=== PATIENT | male | born 1950 | race Caucasian/White ===

== ENCOUNTER → 2017-10-09 | Outpatient (CLI) | payer OTHER ==
[~2017-10-09] MED LIST: AMLO10TA2 PO; CALC-894 PO; CHLO4TAB32 PO; CLOP75TA14 PO; FINA5TAB41 PO; FLUO40CA49 PO; INSLAN SQ; INSULIN ASPART SQ; ISOS30TA6 PO; LOSA100T29 PO; METF500T6 PO; METO25TA6 PO; OMEP20CA10 PO; ROSU40 PO; UBID50TA3 PO
== END ==
LOC: SHCH 10:39
PROVIDERS: ATTEND Internal Medicine Cardiovascular Disease
DX: I25.10 Atherosclerotic heart disease of native coronary artery without angina pectoris (principal)
CPT/HCPCS: 93306

== ENCOUNTER → 2017-10-13 | Outpatient (CLI) | payer OTHER ==
[~2017-10-13] MED LIST changes: +REGADENOSON 0.4 MG/5 ML PF SYG IVP SCH
== END | disposition home or self-care (01) ==
LOC: SHCH 08:25
PROVIDERS: ATTEND Internal Medicine Cardiovascular Disease
DX: I25.10 Atherosclerotic heart disease of native coronary artery without angina pectoris (principal); R01.1 Cardiac murmur, unspecified
CPT/HCPCS: 78452; 93017; 96374; A9500 ×2; J2785

== ENCOUNTER → 2017-10-30 | Outpatient (CLI) | payer OTHER ==
[~2017-10-30] MED LIST changes: -REGADENOSON 0.4 MG/5 ML PF SYG IVP SCH
== END | disposition home or self-care (01) ==
LOC: SHCH 09:46
PROVIDERS: ATTEND Internal Medicine Cardiovascular Disease
DX: I65.23 Occlusion and stenosis of bilateral carotid arteries (principal); I25.10 Atherosclerotic heart disease of native coronary artery without angina pectoris; I71.4 Abdominal aortic aneurysm, without rupture
CPT/HCPCS: 93880; 93978

== ENCOUNTER → 2019-07-26 | Outpatient (CLI) | payer OTHER ==
[~2019-07-26] MED LIST changes: -AMLO10TA2 PO; +AMLO10TA7 PO; -LOSA100T29 PO; +LOSA100T58 PO; +METF-444 PO; -METF500T6 PO; +OMEP-298 PO; -OMEP20CA10 PO
== END | disposition home or self-care (01) ==
LOC: SHCH 15:03
PROVIDERS: ATTEND Internal Medicine Cardiovascular Disease
DX: I10 Essential (primary) hypertension (principal)
CPT/HCPCS: 93306

== ENCOUNTER → 2019-07-30 | Outpatient (CLI) | payer OTHER | END | disposition home or self-care (01) | LOC: SHCH 08:36 | PROVIDERS: ATTEND Internal Medicine Cardiovascular Disease | DX: I65.23 Occlusion and stenosis of bilateral carotid arteries (principal); I10 Essential (primary) hypertension | CPT/HCPCS: 93880 ==

== ENCOUNTER → 2022-06-24 | Outpatient (CLI) | payer OTHER ==
[~2022-06-24] MED LIST changes: +AMLO-258 PO; -AMLO10TA7 PO; -ISOS30TA6 PO; +ISOS30TA92 PO; -OMEP-298 PO; +OMEP20CA12 PO
== END | disposition home or self-care (01) ==
LOC: SHCH 08:58
PROVIDERS: ATTEND Internal Medicine Cardiovascular Disease
DX: I71.40 Abdominal aortic aneurysm, without rupture, unspecified (principal); Z95.828 Presence of other vascular implants and grafts
CPT/HCPCS: 93978

== ENCOUNTER → 2023-02-07 | Outpatient (CLI) | payer OTHER ==
[~2023-02-07] MED LIST changes: +CLOP-31 PO; -CLOP75TA14 PO; -LOSA100T58 PO; +LOSA100T59 PO; +REGADENOSON 0.4 MG/5 ML PF SYG IVP ONE
== END | disposition home or self-care (01) ==
LOC: SHCH 08:29
PROVIDERS: ATTEND Internal Medicine Cardiovascular Disease
DX: R00.2 Palpitations (principal); R06.02 Shortness of breath; R53.83 Other fatigue; Z95.1 Presence of aortocoronary bypass graft; I10 Essential (primary) hypertension; E11.9 Type 2 diabetes mellitus without complications; I71.40 Abdominal aortic aneurysm, without rupture, unspecified
CPT/HCPCS: 78452; 96374; 93017; J2785; A9500 ×2

== ENCOUNTER → 2023-10-03 | Outpatient (CLI) | payer OTHER ==
[~2023-10-03] MED LIST changes: -AMLO-258 PO; +CALC-1105 PO; -CALC-894 PO; -CHLO4TAB32 PO; +CILO100T3 PO; -CLOP-31 PO; +CLOP75TA32 PO; +DOXA4TAB3 PO; +DULO30CA52 PO; +EMPA25TA PO; +FISH1CAP27 PO; -FLUO40CA49 PO; +HYDR12.54 PO; -INSLAN SQ; +INSU300I SQ; -INSULIN ASPART SQ; -METF-444 PO; +METO-408 PO; -METO25TA6 PO; -OMEP20CA12 PO; +PANT40TA54 PO; +PIOG30TA70 PO; -REGADENOSON 0.4 MG/5 ML PF SYG IVP ONE; +RIVA2.5T PO; -ROSU40 PO; +ROSU40TA21 PO; -UBID50TA3 PO
== END | disposition home or self-care (01) ==
LOC: SHCH 08:53
PROVIDERS: ATTEND Internal Medicine Cardiovascular Disease
DX: I08.0 Rheumatic disorders of both mitral and aortic valves (principal); I25.10 Atherosclerotic heart disease of native coronary artery without angina pectoris
CPT/HCPCS: 93306

== ENCOUNTER 2024-12-16 07:16 | Day surgery (SDC) | payer OTHER ==
[2024-12-12 14:45] LABS: APPEARANCE,URINE CLEAR (CLEAR); BILIRUBIN,URINE NEGATIVE (NEGATIVE); COLOR,URINE LIGHT-YELLOW (YELLOW); GLUCOSE, URINE (UA) 70 mg/dL (NEGATIVE); KETONES,URINE NEGATIVE (NEGATIVE); LEUKOCYTE ESTERASE ,URINE 500 Leu/uL (NEGATIVE); NITRATE,URINE NEGATIVE (NEGATIVE); OCCULT BLOOD,URINE SMALL (NEGATIVE); PROTEIN,URINE 70 mg/dL (NEGATIVE); UROBILINOGEN,URINE 0.2 mg/dL (0.2-1.0)
--- NOTE | 2024-12-12 14:47 | EKG ---
[facility] Test Date: 2024-12-12 Test Time: 14:35:37 Pat Name: BOB PORRAS Department: [facility] Room: Gender: M [employer] Loader: [id number] : 1950 Requested By: Lb MCCLELLAN Order Number: [id number] Reading MD: Ignacio Rodriguez Measurements Intervals [place] Rate: 69 P: 0 CO: 0 QRS: -3 QRSD: 102 T: 162 QT: 421 QTc: 482 Interpretive Statements Sinus with PVC's Probable LVH with secondary repol abnrm Inferior infarct, old Compared to ECG 03/10/2023 10:47:08 Ventricular premature complex(es) now present Myocardial infarct finding now present Sinus rhythm no longer present ST (T wave) deviation no longer present Possible ischemia no longer present Prolonged QT interval no longer present Electronically Signed On 12-12-2024 14:53:09 CDT by Ignacio Rodriguez Please click the below link to view image of tracing.
[2024-12-12 15:04] LABS: ADD UA MICROSCOPIC YES
[2024-12-12 15:05] LABS: HEMATOCRIT 41.8 % (42-54); MEAN CORPUSCULAR HGB CONC 33.3 g/dL (32.0-36.0); MEAN CORPUSCULAR VOLUME 90.1 fL (79-99); PLATELET COUNT (AUTO) 284 K/uL (130-400); RED BLOOD CELL COUNT(AUTO) 4.64 MIL/uL (4.50-6.20); RED CELL DISTRIBUTION WIDTH 14.5 % (11.0-15.5); WHITE BLOOD COUNT (AUTO) 9.3 K/uL (4.8-10.8)
[2024-12-12 15:12] LABS: BACTERIA,URINE RARE /HPF (None Seen); MUCUS,URINE RARE LPF (None Seen); OTHER CASTS, URINE 1 /LPF (None Seen); SQUAMOUS EPITHELIAL CELL,UR RARE /HPF (0-2)
[2024-12-12 15:15] LABS: CREATININE 1.4 mg/dL (0.5-1.3); POTASSIUM 3.8 mmol/L (3.5-5.1)
[2024-12-12 15:26] LABS: B-TYPE NATRIURETIC PEPTIDE 1110 pg/mL (0-100)
[2024-12-12 15:28] LABS: INR 1.09 (0.85-1.15); PROTHROMBIN TIME 11.5 SEC (9.6-11.6)
[2024-12-12 15:29] LABS: PARTIAL THROMBOPLASTIN TIME 36.5 SEC (26.3-35.5)
[2024-12-12 15:30] VITALS: BP 180/87; PULSE 67; RESP 18; TEMP 97.2
[2024-12-12 16:17] LABS: BAND NEUTROPHILS % (MANUAL) 1 % (0-2); EOSINOPHILS % (MANUAL) 1 % (1-6); LYMPHOCYTES % (MANUAL) 5 % (22-44); MONOCYTES % (MANUAL) 6 % (2-9); REACTIVE LYMPHOCYTES 19 % (0-0); SEGMENTED NEUTROPHILS % 68 % (40-70); TOTAL CELLS COUNTED 100
[2024-12-12 16:19] LABS: MAN.DIFF COMMENT-IMPRESSION MANUAL DIFFERENTIAL
--- NOTE | 2024-12-12 16:23 | HMCIMG ---
CHEST 1VW HISTORY: Preop COMPARISON: 03/10/2023 FINDINGS: A frontal projection of the chest was obtained. Mild bilateral pulmonary infiltrates are seen may be related to mild pulmonary vascular congestion with possible superimposed pneumonitis. Poststernotomy changes are seen. The heart is enlarged. Degenerative changes of the thoracolumbar spine are present. All the lines and tubes are again seen in place. There are calcifications are seen. IMPRESSION: 1. Bilateral pulmonary infiltrates are seen suggestive of pulmonary vascular congestion with possible superimposed pneumonitis.
--- NOTE | 2024-12-13 12:00 | NUR ---
report reported ua/cxr/bmp/bnp to salbador granados np. received orders to repeat bnp/bmp morning of procedure and also to order lasix, but son not willing to give and has lasix at home. . . also received fluid and sodium restrictions but son not willing to follow. salbador granados weight checker notified of above. Addendum: 12/13/24 at 1242 by JENNY WATKINS RN RN Bear Kenny son is aware of risk of not following the above instructions. he reports patient agrees with his decisions too.
[~2024-12-16] VITALS: Ht 165.1 cm; Wt 95.5 kg
[2024-12-16] VITALS (9 sets, daily range): BP systolic 113–192; BP diastolic 66–89; PULSE 66–78; RESP 15–18; TEMP 97.2–97.5
[~2024-12-16 07:16] MED LIST changes: +AMLO2.5T4 PO; -CALC-1105 PO; -CILO100T3 PO; -CLOP75TA32 PO; -EMPA25TA PO; +FAMO20TA8 PO; -FISH1CAP27 PO; -HYDR12.54 PO; -ISOS30TA92 PO; +LISI5TAB21 PO; +LORA10TA7 PO; -LOSA100T59 PO; -METO-408 PO; +METO50TA18 PO; -PANT40TA54 PO; -PIOG30TA70 PO; +RANO500T6 PO; -ROSU40TA21 PO; +SEMA1PEN3 SQ; +novolog SQ
[2024-12-16] MEDS ORDERED: 0.9%NACL 1000ML 1,000 ML IV SCH (07:30)
--- NOTE | 2024-12-16 07:50 | NUR ---
DR. MCCLELLAN MADE AWARE OF WORSENING BNP, CREATININE, GFR AND HE WAS MADE AWARE THAT PT DID TAKE XARELTO LAST NIGHT. DR. MCCLELLAN STATED HE WILL COME SPEAK WITH PT BEFORE PROCEDURE
[2024-12-16 07:55] LABS: CREATININE 1.5 mg/dL (0.5-1.3); POTASSIUM 4.5 mmol/L (3.5-5.1)
--- NOTE | 2024-12-16 10:50 | NUR ---
DR. MCCLELLAN ASSESSING PT. WILL PROCEED WITH CATH.
[2024-12-16] MEDS ORDERED: SODIUM BICARB 50MEQ 50ML VIAL 50 ML ONE (10:51)
[2024-12-16] MEDS ORDERED: LIDOCAINE HCL 400MG/20ML VIAL ONE (10:51)
[2024-12-16] MEDS ORDERED: HEParin 10,000 UNIT/10ML (1,000 UNIT/ML) VIAL ONE (10:52)
[2024-12-16] MEDS ORDERED: NITROGLYCERIN 50MG VIAL ONE (10:52)
[2024-12-16] MEDS ORDERED: IOHEXOL 350 MG/ML 100ML INFUS..BTL IV ONE (10:52)
[2024-12-16] MEDS ORDERED: HEParin-NS 1,000 UNIT/500 ML 1,000 ML IV ONE (10:52)
[2024-12-16] MEDS ORDERED: DiphenhydrAMINE HCL 50 MG/ML VIAL ONE (11:03)
[2024-12-16] MEDS ORDERED: Solu-medROL 125MG VIAL ONE (11:03)
[2024-12-16] MEDS ORDERED: FAMOTIDINE 20MG VIAL IV ONE (11:03)
[2024-12-16] MEDS ORDERED: FENTanyl CITRate PF 50 MCG/1 ML 2ML VIAL ONE ×2 (11:15→12:09)
[2024-12-16] MEDS ORDERED: MIDAZOLAM HCL 1 MG/ML 2ML VIAL ONE ×2 (11:16→12:09)
[2024-12-16] MEDS ORDERED: niCARDIpine 25MG INJ IV ONE (11:27)
[2024-12-16] MEDS ORDERED: NITROGLYCERIN 4.9GM SPRAY 60 SPRAY/BOT SPRY TL ONE (11:58)
[2024-12-16] MEDS ORDERED: HEParin-NS 1,000 UNIT/500 ML 500 ML IV ONE (12:19)
[2024-12-16] MEDS ORDERED: furoSEMIDE 40MG VIAL ONE (12:47)
[2024-12-16] MEDS ORDERED: hydrALAZine 20MG/ML VIAL ONE (12:56)
[2024-12-16] MEDS ORDERED: DEXTROSE 50%-WATER 50 ML DISP.SYRIN IV PRN (13:00)
[2024-12-16] MEDS ORDERED: 0.9%NACL 10ML VIAL IV SCH (13:00)
--- NOTE | 2024-12-16 16:10 | NUR ---
VASBAND REMOVED DRESSED WITH STERILE GAUZE AND TEGADERM. PT TOLERATED WELL NAD VSS RIGHT RADIAL SITE ASYMPTOMATIC
[2024-12-16] MEDS ORDERED: INSULIN humuLIN R 100 UNIT/ML 3ML SQ SCH (16:30)
--- NOTE | 2024-12-16 17:46 | CCATH ---
PROCEDURE NOTE PROCEDURES: * Left heart catheterization. * Selective left internal mammary artery angiography with subselective left anterior descending coronary artery angiography. * Balloon angioplasty and stenting of the apical LAD. * Balloon angioplasty in the mid LAD and distal MACK anastomosis for severe in-stent restenosis. * Conscious sedation for 90 minutes. INDICATIONS: * Severe coronary artery disease. * Status post remote angioplasty and stent procedure. * Status post remote coronary artery bypass graft surgery. 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 * Ischemic cardiomyopathy. * Congestive heart failure. COMPLICATIONS: None. TOTAL CONTRAST: Approximately 90 mL. Ventriculography and [place] angiography of the coronary vessels was deferred given the patient's chronic kidney disease and his prior angiographic study findings. APPROACH: Left radial approach. DESCRIPTION OF PROCEDURE: The patient was taken to the cardiac catheterization lab after appropriate operative consents were signed. He was having recurrent episodes of unstable angina at rest even this morning. This was accompanied by some shortness of breath and progressive fatigue. The patient had symptoms of orthopnea. After conscious sedation was administered, the left radial artery region was infiltrated with 2% Xylocaine without epinephrine. The left radial artery was then cannulated and a 6-Honduran slender radial sheath was advanced in a retrograde fashion by the modified Seldinger technique. At this point, we utilized a TIG4 catheter that was positioned in the descending aorta over an indwelling wire and crossed into the left ventricular cavity. Left ventricular end-diastolic pressure measurement was obtained with an excess of 20. Pullback revealed aortic stenosis. It was deferred given the patient's chronic kidney disease and his finding on echocardiography with an ejection fraction of 30-35% base of studies. At this point, we used a Molplexli catheter that was engaged with some difficulty into the MACK given the angle of the takeoff of the MACK. Imaging of the MACK revealed a moderately large vessel that was fairly tortuous. At the anastomosis of the MACK to the LAD and in the mid segment of the LAD distal to the anastomosis, there was a stent that had been deployed in 02/2023. There was evidence of critical in-stent restenosis throughout multiple segments of that stent. Moreover, just distal to the stent, the patient had a severe stenotic lesion in the apical segment of the LAD prior to its bifurcation to two main branches. Given the findings on the patient's prior study, and his unstable anginal presentation, status post non-transmural myocardial infarction as well as ischemic cardiomyopathy, we elected to proceed with angioplasty and stenting of the LAD through the MACK. We had considered proceeding with Impella assistance; however, the patient had complex peripheral vascular disease with a graft in the right common femoral artery, which would make access fairly high risk for this individual. At this point, we utilized a 6-Honduran Fatima catheter that was engaged in the ostium of the MACK. A 0.014 wire was advanced and positioned to the distal apical segment of the LAD. At this point, we advanced a 2.5 NC balloon. It was placed in the apical LAD and inflated to 8 atmospheres. This was placed in the stenotic segments distal to the stent and within the stent and inflated to 16 atmospheres. At this point, attempts at advancing a 2.25 x 15 mm stent were not successful due to the tortuosity in the MACK. We then elected to utilize a 6-Honduran guide liner, which was positioned in the mid MACK. This facilitated advancement of the stent, which was placed in the apical LAD and deployed to 12 atmospheres. We then placed a 2.5 x 38 mm stent in the mid to distal LAD extending into the MACK anastomosis segment. This was inflated to nominal pressures followed by placement of a 2.5 NC balloon, which was inflated to 16 atmospheres at 2.56 mm sized. The final angiographic results were good. The patient tolerated the procedure well and left the cardiac catheterization lab in stable condition. The radial band was applied after the guide catheter was removed over an indwelling wire. FINAL IMPRESSION: * Critical coronary artery disease with essential occlusion of all the [place] vessels by prior studies. * Patent large MACK with severe in-stent restenosis in the MACK-LAD anastomosis and distal to the stent. * Ischemic cardiomyopathy with ejection fraction of 35-40% by echocardiogram studies. * No aortic stenosis by pullback. * Successful complex balloon angioplasty and stent placement in the apical LAD with a 2.25 x 15 to nominal pressures and balloon angioplasty of the distal to mid LAD extending back into the MACK anastomosis with a 2.5 x 38 post dilated with a 2.5 NC balloon to 16 atmospheres at 2.56 mm in size. PLAN: Continue medical management and encourage compliance. The patient's prognosis is guarded given the anatomy and the lack of available targets for revascularization. TID: [id number] RECEIPT: [id number]
== END 2024-12-16 16:50 | disposition home or self-care (01) ==
LOC: DAH 07:16
PROVIDERS: ATTEND Internal Medicine Cardiovascular Disease
DX: I25.110 Atherosclerotic heart disease of native coronary artery with unstable angina pectoris (principal); I25.710 Atherosclerosis of autologous vein coronary artery bypass graft(s) with unstable angina pectoris; I25.5 Ischemic cardiomyopathy; I13.0 Hypertensive heart and chronic kidney disease with heart failure and stage 1 through stage 4 chronic kidney disease, or unspecified chronic kidney disease; E11.22 Type 2 diabetes mellitus with diabetic chronic kidney disease; N18.9 Chronic kidney disease, unspecified; I50.9 Heart failure, unspecified; I25.82 Chronic total occlusion of coronary artery; I70.8 Atherosclerosis of other arteries; I71.33 Infrarenal abdominal aortic aneurysm, ruptured; I49.3 Ventricular premature depolarization; T82.855A Stenosis of coronary artery stent, initial encounter; E78.5 Hyperlipidemia, unspecified; R07.9 Chest pain, unspecified; G47.33 Obstructive sleep apnea (adult) (pediatric); E66.9 Obesity, unspecified; N40.0 Benign prostatic hyperplasia without lower urinary tract symptoms; Z88.8 Allergy status to other drugs, medicaments and biological substances; Z95.828 Presence of other vascular implants and grafts; Z79.899 Other long term (current) drug therapy; Z95.1 Presence of aortocoronary bypass graft; Z79.4 Long term (current) use of insulin; Z98.890 Other specified postprocedural states; Z82.49 Family history of ischemic heart disease and other diseases of the circulatory system; Z68.34 Body mass index [BMI] 34.0-34.9, adult; Z99.89 Dependence on other enabling machines and devices; Z95.5 Presence of coronary angioplasty implant and graft; Y71.8 Miscellaneous cardiovascular devices associated with adverse incidents, not elsewhere classified
CPT/HCPCS: 80048 ×2; 83880 ×2; 85025; 85610; 85730; 87086 ×2; 87186; 81001; 36415 ×2; 71045; 93005; 93459; 85347; 82948; C1769 ×3; C1887 ×4; C1874 ×2; A4649; C1894; Q9965 ×2; C1725; J1200; J3490 ×5; J3010 ×2; J2919; J0360; J1644 ×3; J2250 ×2; J1938; Q9967; A4215; A4223 ×3; A4222; A4221; A4663; A4216; A4606; C9604; 99156; 99157